=== PATIENT | male | born 1985 | race Two or more races ===

== ENCOUNTER 2025-04-18 18:13 | Emergency (ER) | payer SELFPAY ==
[2025-04-18 19:15] LABS: BASOPHILS ABSOLUTE AUTO 0.0 K/mm3 (0.0-0.2); BASOPHILS PERCENT AUTO 0.2 % (0.0-1.0); EOSINOPHILS ABSOLUTE AUTO 0.0 K/mm3 (0.0-0.4); EOSINOPHILS PERCENT AUTO 0.2 % (0.0-6.0); IMMATURE GRAN ABSOLUTE AUTO 0.05 K/mm3 (0.00-0.05); IMMATURE GRAN PERCENT AUTO 0.4 % (0.0-0.4); LYMPHOCYTES ABSOLUTE AUTO 1.0 K/mm3 (1.0-4.8); LYMPHOCYTES PERCENT AUTO 8.0 % (24.0-44.0); MEAN PLATELET VOLUME 9.7 fl (9.4-12.4); MONOCYTES ABSOLUTE AUTO 0.6 K/mm3 (0.0-0.8); MONOCYTES PERCENT AUTO 4.8 % (0.0-8.0); NEUTROPHILS ABSOLUTE AUTO 10.3 K/mm3 (1.8-7.7); NEUTROPHILS PERCENT AUTO 86.4 % (41.0-71.0); NRBC ABSOLUTE 0.00 (0.00-0.02); NRBC PERCENT 0.0 % (0.0-0.2); PLATELET COUNT,PLT 186 K/mm3 (150-400); RED BLOOD CELL COUNT 4.92 M/mm3 (4.52-5.90); WHITE BLOOD CELL COUNT,WBC 11.96 K/mm3 (3.9-11.3)
[2025-04-18] MEDS ORDERED: Sodium Chloride 0.9% 10 ML Syringe FLUSH PRN (19:19)
[2025-04-18 19:42] LABS: A/G RATIO 1.2 (1-2); ALANINE AMINOTRANSFERASE,ALT 46 U/L (16-63); ASPARTATE AMNIOTRANSFERASE,AST 26 U/L (15-37); BILIRUBIN TOTAL 0.6 mg/dL (0.2-1.0); BLOOD UREA NITROGEN,BUN 17 mg/dL (7-18); CARBON DIOXIDE,CO2 22 mEq/L (21-32); CHLORIDE,CL 108 mEq/L (98-107); CREATININE 1.1 mg/dL (0.7-1.3); ESTIMATED GFR 88 mL/min (>60); GLUCOSE RANDOM 134 mg/dL (70-99); POTASSIUM,K 3.3 mEq/L (3.5-5.1); PROTEIN TOTAL,TP 7.4 g/dl (6.4-8.2); SODIUM,NA 143 mEq/L (136-145)
[2025-04-18] MEDS ORDERED: Naloxone 0.4 MG/ML SDV IVPUSH PRN (19:42)
[2025-04-18] MEDS: Ondansetron 4 MG/2 ML SDV IVPUSH ONE (19:50)
[2025-04-18 19:58] LABS: LACTIC ACID 2.7 mmol/L (0.4-2.0)
[2025-04-18] MEDS: Iopamidol 612 MG/ML 100 ML Bottle IVPUSH ONE (20:18)
[2025-04-18] MEDS: Sodium Chloride 0.9% 10 ML Syringe FLUSH ONE (20:19)
[2025-04-18 21:47] LABS: APPEARANCE,URINE CLEAR (Clear); GLUCOSE,URINE NEGATIVE (Negative); OCCULT BLOOD,URINE 2+ (Negative)
[2025-04-18 22:11] LABS: SQUAMOUS EPITHELIAL CELLS,UR 0-5 /hpf (0-5)
[2025-04-18] MEDS: Ketorolac 30 MG/ML SDV IVPUSH ONE (23:44)
[2025-04-22 12:47] LABS: INTACT PTH 41 pg/mL (15-65)
== END 2025-04-19 00:02 | disposition home or self-care (01) ==
LOC: JD.ED 18:13
DX: N13.30 Unspecified hydronephrosis (principal); N39.0 Urinary tract infection, site not specified
CPT/HCPCS: 36415; 74018; 74177; 80053; 81001; 82306; 83605; 83690; 83970; 85025; 96361; 96374; 96375; 99284; A9270; J0696; J1885; J2405; J7030; Q9967; J1171